=== PATIENT | female | born 2000 | race Caucasian/White ===

== ENCOUNTER 2024-05-12 19:44 | Emergency (ER) | payer OTHER ==
[~2024-05-12] VITALS: Ht 162.6 cm; Wt 54.0 kg
[2024-05-12 19:53] VITALS: BP 93/59; PULSE 64; RESP 16; TEMP 98.5; O2SAT 100
[2024-05-12 20:15] VITALS: O2SAT 100
[2024-05-12 20:32] LABS: BASOPHILS % (AUTO) 0.4 % (0.0-2.0); EOSINOPHILS # (AUTO) 0.2 K/uL (0-0.4); EOSINOPHILS % (AUTO) 1.5 % (0.0-4.0); HEMATOCRIT 35.7 % (36-48); HEMOGLOBIN 11.5 g/dL (12.0-16.0); LYMPHOCYTES # (AUTO) 1.8 K/uL (2.5-16.5); LYMPHOCYTES % (AUTO) 15.5 % (20.5-51.1); MEAN CORPUSCULAR HEMOGLOBIN 27 pg (27-31); MEAN CORPUSCULAR HGB CONC 32 g/dL (33-37); MEAN CORPUSCULAR VOLUME 83.1 fL (80-94); MONOCYTES % (AUTO) 8.3 % (1.7-9.3); NEUTROPHILS # (AUTO) 8.8 K/uL (1.8-7.7); NEUTROPHILS % (AUTO) 74.3 % (42.2-75.2); PLATELET COUNT (AUTO) 278 K/uL (140-450); RED BLOOD CELL COUNT(AUTO) 4.29 MIL/uL (4.20-5.40); RED CELL DISTRIBUTION WIDTH 15.9 % (11.6-13.7); WHITE BLOOD COUNT (AUTO) 11.9 K/uL (4.8-10.8)
[2024-05-12] MEDS ORDERED: KETOROLAC 30 MG/ML VIAL IM ONE (20:35)
[2024-05-12 20:36] LABS: APPEARANCE,URINE CLEAR (CLEAR); BILIRUBIN,URINE NEGATIVE (NEGATIVE); BLOOD, URINE 1+ (NEGATIVE); COLOR,URINE YELLOW (YELLOW); LEUKOCYTE ESTERASE ,URINE NEGATIVE (NEGATIVE); NITRITE, URINE NEGATIVE (NEGATIVE); PROTEIN,URINE NEGATIVE (NEGATIVE); UGLUCOSE NEGATIVE (NEGATIVE)
[2024-05-12] MEDS: KETOROLAC 30 MG/ML VIAL IVP ONE (20:46)
[2024-05-12 20:47] LABS: ALBUMIN 3.8 g/dL (3.4-5.0); ANION GAP 9.5 (8-16); CALCIUM 8.6 mg/dL (8.5-10.1); CARBON DIOXIDE 26.1 mmol/L (21-32); CREATININE 0.7 mg/dL (0.6-1.3); POTASSIUM 3.6 mmol/L (3.5-5.1); TOTAL BILIRUBIN 0.4 mg/dL (0.0-1.0); TOTAL PROTEIN, SERUM 7.2 g/dL (6.4-8.2)
[2024-05-12 20:53] LABS: BACTERIA,URINE >30 (MANY) /HPF (None Seen); MUCUS,URINE None Seen /LPF (None Seen); SQUAMOUS EPITHELIAL CELL,UR 4-10 (MOD) /LPF (0-3 (FEW))
[2024-05-12 20:54] LABS: TRICHOMONAS,URINE None Seen /HPF (None Seen); WHITE BLOOD CELL CASTS,URINE None Seen /LPF (None Seen); YEAST,URINE None Seen /HPF (None Seen)
[2024-05-12] MEDS: NACL 0.9% 1,000 ML IV ONE (20:58)
[2024-05-12] MEDS ORDERED: cefTRIAXone 1,000 MG VIAL ONE (21:04)
[2024-05-12 22:35] VITALS: O2SAT 100
[2024-05-12] MEDS ORDERED: PYR100 PO (22:38)
[2024-05-12] MEDS ORDERED: IBUP-2213 PO (22:38)
[2024-05-12] MEDS ORDERED: ACET500T99 PO (22:38)
[2024-05-12] MEDS ORDERED: AMOX1TAB8 PO (22:38)
[2024-05-12] MEDS: ACETAMINOPHEN EXTRA STRENGTH 500 MG TAB PO ONE (22:52)
[2024-05-12 22:53] VITALS: BP 93/59; PULSE 64; RESP 16; TEMP 98.5; O2SAT 100
[2024-05-15] MEDS ORDERED: CEPH500C16 PO (18:31)
== END 2024-05-12 22:54 | disposition home or self-care (01) ==
LOC: MED 19:44
DX: N39.0 Urinary tract infection, site not specified (principal); D72.829 Elevated white blood cell count, unspecified; Z79.899 Other long term (current) drug therapy
CPT/HCPCS: 36415; 76856; 80053; 81001; 81025; 85025; 87086; 87186; 93976; 96361; 96365; 96375; 99285; J0696; J1885; J7030